=== PATIENT | female | born 1960 | race Hispanic/Latino ===

== ENCOUNTER → 2022-10-09 | Outpatient (CLI) | payer BC ==
[~2022-10-09] MED LIST: CIPR-278 PO; IBUP-2070 PO; LORA0.5T2 PO; METF-444 PO; METO25TA6 PO
== END | disposition home or self-care (01) ==
LOC: SHCH 10:54
PROVIDERS: ATTEND Internal Medicine
DX: I42.9 Cardiomyopathy, unspecified (principal)
CPT/HCPCS: 93308

== ENCOUNTER 2022-11-10 10:10 | Emergency (ER) | payer BC ==
[~2022-11-10] VITALS: Ht 149.9 cm; Wt 63.5 kg
[2022-11-10 11:07] LABS: BASOPHILS # (AUTO) 0.04 K/uL (0.00-0.20); BASOPHILS % (AUTO) 0.4 % (0.0-5.0); EOSINOPHILS # (AUTO) 0.12 K/uL (0.00-0.70); EOSINOPHILS % (AUTO) 1.1 % (0.0-8.0); HEMATOCRIT 38.9 % (36-48); IMMATURE GRANULOCYTE ABSOLUTE 0.04 K/uL (0-1); LYMPHOCYTES # (AUTO) 2.6 K/uL (1.0-4.8); LYMPHOCYTES % (AUTO) 24.7 % (21.0-51.0); MEAN CORPUSCULAR HEMOGLOBIN 29.2 pg (27.0-33.0); MEAN CORPUSCULAR HGB CONC 32.4 g/dL (32.0-36.0); MEAN CORPUSCULAR VOLUME 90.3 fL (79-99); MONOCYTES # (AUTO) 0.7 K/uL (0.1-1.0); MONOCYTES % (AUTO) 6.2 % (3.0-13.0); NEUTROPHILS # (AUTO) 7.1 K/uL (1.8-7.7); NEUTROPHILS % (AUTO) 67.2 % (40.0-77.0); PLATELET COUNT (AUTO) 98 K/uL (130-400); RED BLOOD CELL COUNT(AUTO) 4.31 MIL/uL (4.00-5.50); RED CELL DISTRIBUTION WIDTH 13.1 % (11.0-15.5); WHITE BLOOD COUNT (AUTO) 10.6 K/uL (4.8-10.8)
[2022-11-10 11:20] LABS: CREATININE 0.7 mg/dL (0.5-1.5); POTASSIUM 4.2 mmol/L (3.5-5.1)
[2022-11-10 11:20] LABS: APPEARANCE,URINE CLOUDY (CLEAR); BILIRUBIN,URINE NEGATIVE (NEGATIVE); COLOR,URINE LIGHT-ORANGE (YELLOW); GLUCOSE, URINE (UA) NEGATIVE (NEGATIVE); KETONES,URINE NEGATIVE (NEGATIVE); LEUKOCYTE ESTERASE ,URINE NEGATIVE Leu/uL (NEGATIVE); NITRATE,URINE NEGATIVE (NEGATIVE); OCCULT BLOOD,URINE LARGE (NEGATIVE); PROTEIN,URINE 50 mg/dL (NEGATIVE); UROBILINOGEN,URINE 0.2 mg/dL (0.2-1.0)
[2022-11-10 11:25] LABS: ALBUMIN 3.9 g/dL (3.5-5.0); BILIRUBIN,TOTAL 0.2 mg/dL (0.2-1.0); TOTAL PROTEIN, SERUM 7.8 g/dL (6.0-8.3)
[2022-11-10 11:25] LABS: ADD UA MICROSCOPIC YES
[2022-11-10 11:33] LABS: BACTERIA,URINE RARE /HPF (None Seen); MUCUS,URINE RARE LPF (None Seen); RBC,URINE TNTC /HPF (0-1); SQUAMOUS EPITHELIAL CELL,UR RARE /HPF (0-2)
[2022-11-10] MEDS ORDERED: MORPHINE 4 MG SYG IVP ONE (15:30)
[2022-11-10] MEDS ORDERED: ONDANSETRON 4MG INJ IVP ONE (15:30)
[2022-11-10 16:59] VITALS: BP 119/62; PULSE 78; RESP 16; O2SAT 97
[2022-11-10] MEDS ORDERED: CEFTRIAXONE 1G VIAL IVPB ONE (17:00)
[2022-11-10] MEDS ORDERED: TRAM50TA4 PO (17:08)
[2022-11-10] MEDS ORDERED: TAMS-1 PO (17:08)
[2022-11-10] MEDS ORDERED: CEPH500B PO (17:08)
== END 2022-11-10 17:27 | disposition home or self-care (01) ==
LOC: EDH 10:10
DX: R31.9 Hematuria, unspecified (principal); R10.9 Unspecified abdominal pain; R11.0 Nausea; I10 Essential (primary) hypertension; E11.9 Type 2 diabetes mellitus without complications
CPT/HCPCS: 99284; 74176; 96365; 96375; 80053; 85025; 87088; 82948; 81001; 36415; J0696; J2405; J2270

== ENCOUNTER → 2024-04-01 | Outpatient (CLI) | payer BC ==
[~2024-04-01] MED LIST changes: +CEPH500B PO; +TAMS-1 PO; +TRAM50TA4 PO
--- NOTE | 2024-04-04 07:51 | HMCSR ---
APPROVED REPORT Laterality: Bilateral Indications r09.89 Doppler Spectral Velocity Analysis PSV / EDVPSV / EDV ECA (R) 78 / cm/sECA (L) 89 / cm/s dICA (R) 67 / 22 cm/sdICA (L) 86 / 33 cm/s Farnaz (R) 65 / 29 cm/smICA (L) 77 / 31 cm/s pICA (R) 67 / 28 cm/spICA (L) 72 / 30 cm/s dCCA (R) 70 / 21 cm/sdCCA (L) 74 / 27 cm/s mCCA (R) 92 / 23 cm/smCCA (L) 98 / 34 cm/s pCCA (R) 92 / 17 cm/spCCA (L) 77 / 24 cm/s Vert (R) 39 / cm/sVert (L) 37 / cm/s Subl. (R) 164 / cm/sSubl. (L) 161 / cm/s ICA/CCA 0.73ICA/CCA 0.88 Technologist Impression Minimal plaque noted in the bilateral carotids, without hemodynamic significance. Bilateral vertebral arteries appear antegrade. Conclusion Minimal plaque noted in the bilateral carotids, without hemodynamic significance. Bilateral vertebral arteries appear antegrade. Conclusion Minimal plaque noted in the bilateral carotids, without hemodynamic significance. Bilateral vertebral arteries appear antegrade.
== END | disposition home or self-care (01) ==
LOC: SHCH 11:15
PROVIDERS: ATTEND Internal Medicine
DX: R09.89 Other specified symptoms and signs involving the circulatory and respiratory systems (principal)
CPT/HCPCS: 93880